=== PATIENT | male | born 1975 | race Two or more races ===

== ENCOUNTER 2020-09-02 01:49 | Emergency (ER) | payer SELFPAY ==
[~2020-09-02] VITALS: Ht 157.5 cm; Wt 74.8 kg
--- NOTE | 2020-09-02 01:53 | NUR ---
ED Nurse Note: Patient CELESTINE LAFD [id number] due to choking while eating tacos. Per EMS pt is under influence of alcohol and was choking on the ground upon arrival. Per EMS pt spat out tacos eaten and was satting at 99% RA. Airway is clear, no SOB//CP. Patient is AAOx4 and ambulatory
--- NOTE | 2020-09-02 01:54 | NUR ---
ED Nurse Note: ERMD at bedside
--- NOTE | 2020-09-02 01:55 | Emergency Room Report ---
History of Present Illness General Chief Complaint: To Be Triaged Present Illness HPI 45-year-old male here with alcohol intoxication. Patient admitted to drinking heavy amount of alcohol earlier tonight. He was eating tacos at a taco truck and says "some got stuck in my throat." He began coughing and his girlfriend became concerned and called paramedics. When paramedics arrived the patient was sitting they are breathing comfortably and speaking in full sentences and in no distress. Patient says "I was able to cough it all up." He has no complaints r ight now. He is visibly intoxicated. No head injury, neck pain, neck stiffness, headache, vision changes, fevers, chills, chest pain, palpitations, shortness of breath, cough, back pain, abdominal pain, nausea, vomiting, diarrhea, dysuria. Allergies: Coded Allergies: No Known Allergies (Unverified , 09/02/20) Review of Systems All Other Systems: negative except mentioned in HPI Physical Exam [id number] EP Interpretation: reviewed, normal General Appearance: no apparent distress, alert, non-toxic, other - Visibly intoxicated but is awake and alert answering questions appropriately Head: normocephalic, atraumatic Eyes: bilateral eye normal inspection, bilateral eye PERRL ENT: normal ENT inspection, hearing grossly normal, normal pharynx, no angioedema, normal voice Neck: full range of motion, supple/symm/no masses Respiratory: chest non-tender, lungs clear, normal breath sounds, speaking full sentences Cardiovascular #1: regular rate, rhythm, no edema Cardiovascular #2: 2+ carotid (R), 2+ carotid (L), 2+ radial (R), 2+ radial (L), 2+ dorsalis pedis (R), 2+ dorsalis pedis (L) Gastrointestinal: normal bowel sounds, non tender, soft, non-distended, no guarding, no rebound Rectal: deferred Genitourinary: normal inspection, no CVA tenderness Musculoskeletal: back normal, normal range of motion, gait/station normal, non- tender Neurologic: alert, motor strength/tone normal, oriented x3, sensory intact, responsive, speech normal, other - Intoxicated Psychiatric: judgement/insight normal, memory normal, mood/affect normal, no suicidal/homicidal ideation Lymphatic: no adenopathy Medical Decision Making Diagnostic Impression: Primary Impression: Acute alcoholic intoxication ER Course 45-year-old male here with alcohol intoxication. Patient mated to drinking heavily on alcohol earlier today. Patient had normal physical examination and was awake and alert. He was observed until he was clinically sober. Ambulating felt the emergency department with any difficulty. Neurovascularly intact. Given information to follow-up with a primary care provider. Discharged in good condition. Puneet Sears M.D. Sep 02, 2020 01:55
[2020-09-02 02:07] VITALS: BP 160/80
--- NOTE | 2020-09-02 02:14 | NUR ---
ER DISCHARGE NOTE: Patient is cleared to be discharged per ERMD, pt is aox4, on room air, with stable vital signs. pt was given dc and prescription instructions, pt was able to verbalize understanding, pt id band removed. pt is able to ambulate with steady gait. pt took all belongings.
[2020-09-02 02:16] VITALS: BP 160/80
== END 2020-09-02 02:21 | disposition home or self-care (01) ==
LOC: EDBD 01:49 → EMR 02:00
DX: F10.129 Alcohol abuse with intoxication, unspecified (principal)
CPT/HCPCS: 99281